=== PATIENT | female | born 1930 | race Caucasian/White ===

== ENCOUNTER 2017-06-19 12:02 | Emergency (ER) | payer OTHER ==
[2017-06-19 12:56] LABS: ADD MAN DIFF? NO
[2017-06-19 12:59] LABS: BASOPHILS % 0.4 % (0.0-2.0); EOSINOPHILS # 0.2 10^3/ul (0.0-0.5); EOSINOPHILS % 4.4 % (0.0-7.0); HEMATOCRIT 40.1 % (37.0-47.0); HEMOGLOBIN 13.6 g/dl (12.0-16.0); LYMPHOCYTES # 1.5 10^3/ul (0.8-2.9); LYMPHOCYTES % 30.4 % (15.0-51.0); MEAN CORPUSCULAR HEMOGLOBIN 31.1 pg (29.0-33.0); MEAN CORPUSCULAR HGB CONC 33.9 g/dl (32.0-37.0); MEAN CORPUSCULAR VOLUME 91.6 fl (82.0-101.0); MEAN PLATELET VOLUME 10.7 fl (7.4-10.4); MONOCYTE # 0.5 10^3/ul (0.3-0.9); MONOCYTES % 10.8 % (0.0-11.0); NEUTROPHIL # 2.7 10^3/ul (1.6-7.5); NEUTROPHILS % 53.8 % (39.0-77.0); PLATELET COUNT 169 10^3/UL (140-415); RED BLOOD COUNT 4.38 10^6/ul (4.20-5.40); RED CELL DISTRIBUTION WIDTH 13.8 % (11.5-14.5)
[2017-06-19 13:20] LABS: ALANINE AMINOTRANSFERASE 30 IU/L (13-69); ALBUMIN 4.1 g/dl (3.3-4.9); ALBUMIN/GLOBULIN RATIO 1.51; ALKALINE PHOSPHATASE 56 IU/L (42-121); ANION GAP 14 (8-16); ASPARTATE AMINO TRANSFERASE 28 IU/L (15-46); BILIRUBIN,INDIRECT 0.5 mg/dl (0-1.1); BILIRUBIN,TOTAL 0.5 mg/dl (0.2-1.3); BLOOD UREA NITROGEN 19 mg/dl (7-20); CALCIUM 9.3 mg/dl (8.4-10.2); CARBON DIOXIDE 33 mmol/L (21-31); CHLORIDE 102 mmol/L (97-110); CREATININE 0.96 mg/dl (0.44-1.00); GLUCOSE 87 mg/dl (70-220); INR 2.37; LIPASE 64 U/L (23-300); POTASSIUM 4.1 mmol/L (3.5-5.1); PROTIME 26.5 Sec (11.9-14.9); PT RATIO 2.1; SODIUM 145 mmol/L (135-144); TOTAL PROTEIN 6.8 g/dl (6.1-8.1)
[2017-06-19 13:32] LABS: TROPONIN-I < 0.012 ng/ml (0.00-0.12)
[2017-06-19] MEDS: SOD CHLORIDE 0.9% 1,000 ML IV (13:37)
[2017-06-19 13:40] LABS: ADD UMIC YES; UR ASCORBIC ACID NEGATIVE (NEGATIVE); UR BILIRUBIN (Dip) NEGATIVE (NEGATIVE); UR BLOOD (Dip) 1+ mg/dL (NEGATIVE); UR CLARITY CLEAR (CLEAR); UR COLOR STRAW (YELLOW); UR GLUCOSE (Dip) NEGATIVE (NEGATIVE); UR KETONES (Dip) NEGATIVE (NEGATIVE); UR LEUKOCYTE ESTERASE (Dip) NEGATIVE Leu/ul (NEGATIVE); UR NITRITE (Dip) NEGATIVE (NEGATIVE); UR RBC 1 /HPF (0-5); UR SPECIFIC GRAVITY (Dip) 1.008 (1.003-1.030); UR SQUAMOUS EPITHELIAL CELL FEW /HPF (FEW); UR TOTAL PROTEIN (Dip) NEGATIVE (NEGATIVE); UR UROBILINOGEN (Dip) NEGATIVE (NEGATIVE); UR WBC 1 /HPF (0-5)
== END 2017-06-19 15:17 | disposition home or self-care (01) ==
LOC: E/R 12:02
DX: R55 Syncope and collapse (principal); I10 Essential (primary) hypertension; E03.9 Hypothyroidism, unspecified; Z79.82 Long term (current) use of aspirin; Z79.01 Long term (current) use of anticoagulants
CPT/HCPCS: 36415; 71045; 80053; 81001; 83690; 84484; 85025; 85610; 99284-25

== ENCOUNTER 2017-06-27 14:22 | Emergency (ER) | payer OTHER ==
[2017-06-27] MEDS: ALBUTEROL 0.083% (NEB) 2.5 MG/3 ML AMP NEB ×2 (16:32→18:57)
[2017-06-27] MEDS: IPRATROPIUM (NEB) 0.5 MG/2.5 ML AMP NEB (16:32)
[2017-06-27] MEDS: ALBUTEROL 0.083% (NEB) 2.5 MG/3 ML AMP HHN (16:35)
[2017-06-27 17:21] LABS: ADD MAN DIFF? NO
[2017-06-27] MEDS: predniSONE 20 MG TAB PO (17:22)
[2017-06-27 17:23] LABS: BASOPHILS % 0.5 % (0.0-2.0); EOSINOPHILS # 0.1 10^3/ul (0.0-0.5); EOSINOPHILS % 2.7 % (0.0-7.0); HEMATOCRIT 38.5 % (37.0-47.0); HEMOGLOBIN 12.7 g/dl (12.0-16.0); LYMPHOCYTES # 1.1 10^3/ul (0.8-2.9); LYMPHOCYTES % 28.6 % (15.0-51.0); MEAN CORPUSCULAR HEMOGLOBIN 30.8 pg (29.0-33.0); MEAN CORPUSCULAR VOLUME 93.4 fl (82.0-101.0); MEAN PLATELET VOLUME 10.9 fl (7.4-10.4); MONOCYTE # 0.5 10^3/ul (0.3-0.9); MONOCYTES % 12.7 % (0.0-11.0); NEUTROPHILS % 55.2 % (39.0-77.0); RED BLOOD COUNT 4.12 10^6/ul (4.20-5.40); RED CELL DISTRIBUTION WIDTH 13.5 % (11.5-14.5)
[2017-06-27 17:23] LABS: WHITE BLOOD COUNT 3.7 10^3/ul (4.8-10.8)
[2017-06-27 17:38] LABS: PLATELET COUNT 123 10^3/UL (140-415); POSITIVE DIFF @See below
[2017-06-27 17:44] LABS: INR 2.03; PROTIME 23.4 Sec (11.9-14.9); PT RATIO 1.8
[2017-06-27 17:45] LABS: PARTIAL THROMBOPLASTIN TIME 41.9 Sec (25.0-35.0)
[2017-06-27 17:46] LABS: ALANINE AMINOTRANSFERASE 34 IU/L (13-69); ALBUMIN 3.7 g/dl (3.3-4.9); ALBUMIN/GLOBULIN RATIO 1.32; ALKALINE PHOSPHATASE 43 IU/L (42-121); ANION GAP 14 (8-16); ASPARTATE AMINO TRANSFERASE 34 IU/L (15-46); BILIRUBIN,INDIRECT 0.4 mg/dl (0-1.1); BILIRUBIN,TOTAL 0.4 mg/dl (0.2-1.3); BLOOD UREA NITROGEN 19 mg/dl (7-20); CALCIUM 8.4 mg/dl (8.4-10.2); CARBON DIOXIDE 32 mmol/L (21-31); CHLORIDE 95 mmol/L (97-110); GLUCOSE 100 mg/dl (70-220); POTASSIUM 4.5 mmol/L (3.5-5.1); SODIUM 136 mmol/L (135-144); TOTAL PROTEIN 6.5 g/dl (6.1-8.1)
[2017-06-27 17:58] LABS: B-TYPE NATRIURETIC PEPTIDE 5080 PG/ML (0-450)
[2017-06-27 18:02] LABS: TROPONIN-I < 0.012 ng/ml (0.00-0.12)
[2017-06-27 18:11] LABS: BAND NEUTROPHILS #M 0.1 10^3/ul (0.0-0.6); BAND NEUTROPHILS % (M) 3 % (0-4); BASOPHILS % (M) 1 % (0-2); EOSINOPHILS % (M) 4 % (0-7); LYMPHOCYTES #M 0.6 10^3/ul (0.8-2.9); LYMPHOCYTES % (M) 18 % (15-51); MONOCYTE #M 0.2 10^3/ul (0.3-0.9); MONOCYTES % (M) 6 % (0-11); PLASMAC%(M) 1 % (0); PLATELET ESTIMATE DECREASED; REACTIVE LYMPHOCYTES% (M) 1 % (0-0); SEG NEUT #M 2.4 10^3/ul (1.6-7.5); SEGMENTED NEUTROPHILS (M) % 66 % (39-77); SMUDGE%M 2 % (0-0)
[2017-06-27] MEDS: LEVOFLOXACIN 750 MG TABLET PO (18:53)
== END 2017-06-27 19:32 | disposition home or self-care (01) ==
LOC: FTE 14:22 → E/R 19:32
DX: J20.9 Acute bronchitis, unspecified (principal); I10 Essential (primary) hypertension; E03.9 Hypothyroidism, unspecified; Z79.01 Long term (current) use of anticoagulants; Z79.82 Long term (current) use of aspirin
CPT/HCPCS: 36415; 71045; 80053; 83880; 84484; 85025; 85610; 85730; 93005; 94640; 94664; 99285-25

== ENCOUNTER 2017-06-30 10:11 | Inpatient (IN) | payer OTHER ==
[2017-06-30] MEDS: ALBUTEROL 0.5% (NEB) 2.5 MG/0.5 ML AMP INH (11:17)
[2017-06-30] MEDS: FUROSEMIDE 40 MG INJ IV (11:23)
[2017-06-30 11:35] LABS: WHITE BLOOD COUNT 4.6 10^3/ul (4.8-10.8)
[2017-06-30 11:35] LABS: HEMATOCRIT 40.7 % (37.0-47.0); HEMOGLOBIN 13.4 g/dl (12.0-16.0); MEAN CORPUSCULAR HEMOGLOBIN 30.7 pg (29.0-33.0); MEAN CORPUSCULAR HGB CONC 32.9 g/dl (32.0-37.0); MEAN CORPUSCULAR VOLUME 93.3 fl (82.0-101.0); MEAN PLATELET VOLUME 11.3 fl (7.4-10.4); PLATELET COUNT 161 10^3/UL (140-415); RED BLOOD COUNT 4.36 10^6/ul (4.20-5.40); RED CELL DISTRIBUTION WIDTH 13.8 % (11.5-14.5)
[2017-06-30 11:36] LABS: POSITIVE DIFF @See below
[2017-06-30 11:37] LABS: ADD MAN DIFF? YES
[2017-06-30 11:56] LABS: ALANINE AMINOTRANSFERASE 35 IU/L (13-69); ALBUMIN 3.7 g/dl (3.3-4.9); ALBUMIN/GLOBULIN RATIO 1.32; ALKALINE PHOSPHATASE 40 IU/L (42-121); ANION GAP 16 (8-16); ASPARTATE AMINO TRANSFERASE 38 IU/L (15-46); BILIRUBIN,INDIRECT 0.1 mg/dl (0-1.1); BILIRUBIN,TOTAL 0.1 mg/dl (0.2-1.3); BLOOD UREA NITROGEN 22 mg/dl (7-20); CARBON DIOXIDE 32 mmol/L (21-31); CHLORIDE 101 mmol/L (97-110); CREATININE 1.03 mg/dl (0.44-1.00); GLUCOSE 149 mg/dl (70-220); LIPASE 115 U/L (23-300); POTASSIUM 3.8 mmol/L (3.5-5.1); SODIUM 145 mmol/L (135-144); TOTAL PROTEIN 6.5 g/dl (6.1-8.1)
[2017-06-30 12:08] LABS: B-TYPE NATRIURETIC PEPTIDE 5550 PG/ML (0-450)
[2017-06-30 12:22] LABS: TROPONIN-I < 0.012 ng/ml (0.00-0.12)
[2017-06-30 12:39] LABS: ANISOCYTOSIS 1+ (0-0); BAND NEUTROPHILS #M 0.1 10^3/ul (0.0-0.6); BAND NEUTROPHILS % (M) 4 % (0-4); LYMPHOCYTES #M 0.6 10^3/ul (0.8-2.9); LYMPHOCYTES % (M) 15 % (15-51); MICROCYTOSIS 1+ (0-0); MONOCYTE #M 0.3 10^3/ul (0.3-0.9); MONOCYTES % (M) 7 % (0-11); PLATELET ESTIMATE NORMAL; POIKILOCYTOSIS 2+ (0-0); REACTIVE LYMPHOCYTES #M 0.2 10^3/ul (0.0-0.0); REACTIVE LYMPHOCYTES% (M) 6 % (0-0); SEG NEUT #M 3.1 10^3/ul (1.6-7.5); SEGMENTED NEUTROPHILS (M) % 68 % (39-77); SMUDGE%M 11 % (0-0)
[2017-06-30] MEDS: METHYLPREDNISOLONE 125 MG INJ IV (13:54)
[2017-06-30] MEDS ORDERED: ACETAMINOPHEN 325 MG TAB PO (14:30)
[2017-06-30] MEDS ORDERED: HYDROCODONE/APAP (5/325) TAB PO (14:30)
[2017-06-30] MEDS ORDERED: ONDANSETRON 4 MG INJ IV (14:30)
[2017-06-30] MEDS ORDERED: ZOLPIDEM 5 MG TAB PO (14:30)
[2017-06-30] MEDS ORDERED: GUAIFENESIN/DM 5ML CUP PO (15:00)
[2017-06-30 15:13] LABS: CREATINE KINASE 79 IU/L (23-200)
[2017-06-30 15:24] LABS: CK INDEX 1.9; CK-MB 1.49 ng/ml (0.0-2.4)
[2017-06-30 15:30] LABS: TROPONIN-I < 0.012 ng/ml (0.00-0.12)
[2017-06-30] MEDS: [UNRECOGNIZED DRUG - MIXTURE] XX ×2 (15:30→23:30)
[2017-06-30 15:33] LABS: MAGNESIUM 2.1 mg/dl (1.7-2.5)
[2017-06-30] MEDS: DOCUSATE SODIUM 100 MG CAP PO (16:43)
[2017-06-30] MEDS: WARFARIN 2.5 MG TAB PO (17:59)
[2017-06-30] MEDS: ATORVASTATIN 10 MG TAB PO (20:21)
[2017-06-30 20:31] LABS: CREATINE KINASE 67 IU/L (23-200)
[2017-06-30 20:44] LABS: CK INDEX 2.3; CK-MB 1.52 ng/ml (0.0-2.4)
[2017-06-30 20:45] LABS: TROPONIN-I < 0.012 ng/ml (0.00-0.12)
[2017-07-01] MEDS: DOCUSATE SODIUM 100 MG CAP PO ×2 (01:50→15:04)
[2017-07-01 05:53] LABS: WHITE BLOOD COUNT 4.7 10^3/ul (4.8-10.8)
[2017-07-01 05:53] LABS: HEMATOCRIT 42.2 % (37.0-47.0); MEAN CORPUSCULAR HEMOGLOBIN 30.4 pg (29.0-33.0); MEAN CORPUSCULAR HGB CONC 33.2 g/dl (32.0-37.0); MEAN CORPUSCULAR VOLUME 91.7 fl (82.0-101.0); PLATELET COUNT 195 10^3/UL (140-415); RED CELL DISTRIBUTION WIDTH 13.4 % (11.5-14.5)
[2017-07-01 06:08] LABS: POSITIVE DIFF @See below
[2017-07-01 06:09] LABS: ADD MAN DIFF? YES
[2017-07-01 06:10] LABS: INR 2.95; PROTIME 31.6 Sec (11.9-14.9); PT RATIO 2.5
[2017-07-01 06:11] LABS: PARTIAL THROMBOPLASTIN TIME 34.8 Sec (25.0-35.0)
[2017-07-01 06:23] LABS: ANION GAP 14 (8-16); BLOOD UREA NITROGEN 31 mg/dl (7-20); CALCIUM 9.1 mg/dl (8.4-10.2); CARBON DIOXIDE 34 mmol/L (21-31); CHLORIDE 98 mmol/L (97-110); CHOL/HDL RATIO 2.7 RATIO; CHOLESTEROL 136 mg/dl (100-200); CREATININE 1.07 mg/dl (0.44-1.00); GLUCOSE 147 mg/dl (70-220); HDL CHOLESTEROL 50 mg/dl (33-92); LDL CHOLESTEROL,CALCULATED 72 mg/dl; MAGNESIUM 2.2 mg/dl (1.7-2.5); POTASSIUM 4.1 mmol/L (3.5-5.1); SODIUM 142 mmol/L (135-144); TRIGLYCERIDES 71 mg/dl (0-149)
[2017-07-01] MEDS: LEVOTHYROXINE 88 MCG TAB PO (06:36)
[2017-07-01] MEDS: [UNRECOGNIZED DRUG - MIXTURE] XX (07:30)
[2017-07-01 07:56] LABS: HEMOGLOBIN A1C 5.7 % (0-5.9)
[2017-07-01 07:59] LABS: ANISOCYTOSIS 1+ (0-0); BAND NEUTROPHILS % (M) 2 % (0-4); LYMPHOCYTES #M 0.5 10^3/ul (0.8-2.9); LYMPHOCYTES % (M) 11 % (15-51); MICROCYTOSIS 1+ (0-0); MONOCYTES % (M) 1 % (0-11); MYELOCYTES % (M) 1 % (0-0); PLATELET ESTIMATE NORMAL; POIKILOCYTOSIS 1+ (0-0); POLYCHROMASIA 1+ (0-0); REACTIVE LYMPHOCYTES #M 0.5 10^3/ul (0.0-0.0); REACTIVE LYMPHOCYTES% (M) 11 % (0-0); SEG NEUT #M 3.5 10^3/ul (1.6-7.5); SEGMENTED NEUTROPHILS (M) % 74 % (39-77); SMUDGE%M 3 % (0-0)
[2017-07-01] MEDS ORDERED: ENOXAPARIN 30 MG/0.3 ML SYG SC (09:00)
[2017-07-01] MEDS ORDERED: [UNRECOGNIZED DRUG - OTHER] PO (09:00)
[2017-07-01] MEDS ORDERED: WARFARIN 2.5 MG TAB PO (09:00)
[2017-07-01] MEDS: ASPIRIN 81 MG TAB PO (09:34)
[2017-07-01] MEDS: CHOLECALCIFEROL 2,000 UNIT CAP PO (09:34)
[2017-07-01] MEDS: MULTIVITAMINS THERAPEUTIC TAB PO (09:57)
[2017-07-01] MEDS: DONEPEZIL 5 MG TAB PO (09:57)
[2017-07-01] MEDS: SOD CHLORIDE 0.9% 100 ML (10:15)
[2017-07-01] MEDS: IOHEXOL 300MG/ML 150 ML BTL (10:15)
[2017-07-01] MEDS ORDERED: LEVALBUTEROL (NEB) 0.31 MG/3 ML AMP HHN (11:30)
[2017-07-01 11:44] LABS: THYROID STIMULATING HORMONE 0.147 MIU/L (0.465-4.680)
[2017-07-01 12:17] LABS: CREATINE KINASE 48 IU/L (23-200)
[2017-07-01 12:29] LABS: CK INDEX 2.3; TROPONIN-I < 0.012 ng/ml (0.00-0.12)
[2017-07-01] MEDS: CEFEPIME 1GM/50 ML (PMX) 50 ML IVPB (13:39)
[2017-07-01] MEDS: LEVALBUTEROL (NEB) 0.31 MG/3 ML AMP HHN ×4 (14:24→20:37)
[2017-07-01 15:44] LABS: CREATINE KINASE 48 IU/L (23-200)
[2017-07-01 15:57] LABS: CK INDEX 2.5; CK-MB 1.18 ng/ml (0.0-2.4)
[2017-07-01 15:59] LABS: TROPONIN-I < 0.012 ng/ml (0.00-0.12)
[2017-07-01] MEDS: WARFARIN 2.5 MG TAB PO (16:38)
[2017-07-01] MEDS: ATORVASTATIN 10 MG TAB PO (20:34)
[2017-07-02] MEDS: LEVALBUTEROL (NEB) 0.31 MG/3 ML AMP HHN ×6 (01:00→20:20)
[2017-07-02] MEDS: LEVOTHYROXINE 88 MCG TAB PO (06:07)
[2017-07-02] MEDS: DOCUSATE SODIUM 100 MG CAP PO ×2 (06:07→13:54)
[2017-07-02] MEDS: CHOLECALCIFEROL 2,000 UNIT CAP PO (08:54)
[2017-07-02] MEDS: DONEPEZIL 5 MG TAB PO (08:54)
[2017-07-02] MEDS: ASPIRIN 81 MG TAB PO (08:54)
[2017-07-02] MEDS: MULTIVITAMINS THERAPEUTIC TAB PO (08:54)
[2017-07-02 08:56] LABS: ADD MAN DIFF? NO
[2017-07-02 09:04] LABS: WHITE BLOOD COUNT 6.6 10^3/ul (4.8-10.8)
[2017-07-02 09:04] LABS: EOSINOPHILS % 0.2 % (0.0-7.0); HEMATOCRIT 43.2 % (37.0-47.0); HEMOGLOBIN 14.4 g/dl (12.0-16.0); LYMPHOCYTES % 30.9 % (15.0-51.0); MEAN CORPUSCULAR HEMOGLOBIN 30.8 pg (29.0-33.0); MEAN CORPUSCULAR HGB CONC 33.3 g/dl (32.0-37.0); MEAN CORPUSCULAR VOLUME 92.5 fl (82.0-101.0); MEAN PLATELET VOLUME 10.9 fl (7.4-10.4); MONOCYTE # 0.6 10^3/ul (0.3-0.9); MONOCYTES % 9.3 % (0.0-11.0); NEUTROPHIL # 3.9 10^3/ul (1.6-7.5); NEUTROPHILS % 59.3 % (39.0-77.0); PLATELET COUNT 206 10^3/UL (140-415); RED BLOOD COUNT 4.67 10^6/ul (4.20-5.40); RED CELL DISTRIBUTION WIDTH 13.7 % (11.5-14.5)
[2017-07-02 09:16] LABS: INR 3.23; PARTIAL THROMBOPLASTIN TIME 34.3 Sec (25.0-35.0); PT RATIO 2.7
[2017-07-02 09:24] LABS: ANION GAP 15 (8-16); BLOOD UREA NITROGEN 41 mg/dl (7-20); CALCIUM 8.7 mg/dl (8.4-10.2); CARBON DIOXIDE 35 mmol/L (21-31); CHLORIDE 98 mmol/L (97-110); CREATININE 1.13 mg/dl (0.44-1.00); GLUCOSE 81 mg/dl (70-220); MAGNESIUM 2.4 mg/dl (1.7-2.5); POTASSIUM 3.7 mmol/L (3.5-5.1); SODIUM 144 mmol/L (135-144)
[2017-07-02] MEDS: CEFEPIME 1GM/50 ML (PMX) 50 ML IVPB (12:31)
[2017-07-02 15:29] LABS: ADD UMIC NO; UR ASCORBIC ACID 40 mg/dL (NEGATIVE); UR BILIRUBIN (Dip) NEGATIVE (NEGATIVE); UR BLOOD (Dip) NEGATIVE (NEGATIVE); UR CLARITY SLIGHTLY CLOUDY (CLEAR); UR COLOR YELLOW (YELLOW); UR GLUCOSE (Dip) NEGATIVE (NEGATIVE); UR KETONES (Dip) NEGATIVE (NEGATIVE); UR LEUKOCYTE ESTERASE (Dip) NEGATIVE Leu/ul (NEGATIVE); UR MUCUS FEW /HPF (NONE SEEN); UR NITRITE (Dip) NEGATIVE (NEGATIVE); UR RBC 1 /HPF (0-5); UR SPECIFIC GRAVITY (Dip) 1.029 (1.003-1.030); UR TOTAL PROTEIN (Dip) NEGATIVE (NEGATIVE); UR UROBILINOGEN (Dip) NEGATIVE (NEGATIVE); UR WBC 1 /HPF (0-5)
[2017-07-02 15:48] LABS: CREATININE,URINE RANDOM 157.77 mg/dl (20-320)
[2017-07-02 16:12] LABS: SODIUM,URINE RANDOM < 13 mmol/L (30-90)
[2017-07-02] MEDS ORDERED: WARFARIN 2.5 MG TAB PO (17:00)
[2017-07-02] MEDS: ATORVASTATIN 10 MG TAB PO (20:15)
[2017-07-02] MEDS: ATENOLOL 50 MG TAB PO (20:16)
[2017-07-03] MEDS: LEVALBUTEROL (NEB) 0.31 MG/3 ML AMP HHN ×4 (00:37→13:17)
[2017-07-03] MEDS: DOCUSATE SODIUM 100 MG CAP PO (00:46)
[2017-07-03] MEDS: ATENOLOL 50 MG TAB PO (09:22)
[2017-07-03] MEDS: DONEPEZIL 5 MG TAB PO (09:22)
[2017-07-03] MEDS: MULTIVITAMINS THERAPEUTIC TAB PO (09:22)
[2017-07-03] MEDS: CHOLECALCIFEROL 2,000 UNIT CAP PO (09:22)
[2017-07-03] MEDS: ASPIRIN 81 MG TAB PO (09:22)
[2017-07-03 09:23] LABS: ADD MAN DIFF? NO
[2017-07-03 09:27] LABS: BASOPHILS % 0.1 % (0.0-2.0); EOSINOPHILS # 0.1 10^3/ul (0.0-0.5); EOSINOPHILS % 1.4 % (0.0-7.0); HEMATOCRIT 46.1 % (37.0-47.0); LYMPHOCYTES # 3.2 10^3/ul (0.8-2.9); LYMPHOCYTES % 40.3 % (15.0-51.0); MEAN CORPUSCULAR HEMOGLOBIN 30.2 pg (29.0-33.0); MEAN CORPUSCULAR HGB CONC 32.5 g/dl (32.0-37.0); MEAN CORPUSCULAR VOLUME 92.8 fl (82.0-101.0); MEAN PLATELET VOLUME 10.6 fl (7.4-10.4); MONOCYTE # 0.6 10^3/ul (0.3-0.9); MONOCYTES % 7.6 % (0.0-11.0); PLATELET COUNT 271 10^3/UL (140-415); RED BLOOD COUNT 4.97 10^6/ul (4.20-5.40); RED CELL DISTRIBUTION WIDTH 13.4 % (11.5-14.5)
[2017-07-03 09:42] LABS: ANION GAP 13 (8-16); BLOOD UREA NITROGEN 38 mg/dl (7-20); CALCIUM 8.6 mg/dl (8.4-10.2); CARBON DIOXIDE 34 mmol/L (21-31); CHLORIDE 99 mmol/L (97-110); CREATININE 1.23 mg/dl (0.44-1.00); GLUCOSE 109 mg/dl (70-220); POTASSIUM 3.5 mmol/L (3.5-5.1); SODIUM 142 mmol/L (135-144)
[2017-07-03 09:55] LABS: INR 3.14; PROTIME 33.2 Sec (11.9-14.9); PT RATIO 2.6
[2017-07-03] MEDS: CEFEPIME 1GM/50 ML (PMX) 50 ML IVPB (12:26)
[2017-07-03 12:28] LABS: FREE THYROXINE INDEX (Calc) 3.33 ug/ml (0.65-3.89); T3 UPTAKE 43.2 % (23.5-40.5); T4 (THYROXINE) 7.7 ug/dl (5.5-11.0)
[2017-07-03] MEDS: FUROSEMIDE 20 MG INJ IV (13:00)
[2017-07-03] MEDS: METHYLPREDNISOLONE 40 MG INJ IV (14:05)
[2017-07-03] MEDS ORDERED: WARFARIN 1 MG TAB PO (17:00)
[2017-07-04 15:12] LABS: CREATININE, RANDOM URINE 162 mg/dL (20-320); MICROALBUMIN 0.6 mg/dL; MICROALBUMIN/CREATININE RATIO 4 (<30)
== END 2017-07-03 14:18 | disposition home or self-care (01) | DRG 202 ==
LOC: E/R 10:11 → MS4 07-01 16:58 → MS3 12:33
DX: J20.9 Acute bronchitis, unspecified (principal); J96.00 Acute respiratory failure, unspecified whether with hypoxia or hypercapnia; I50.31 Acute diastolic (congestive) heart failure; N17.9 Acute kidney failure, unspecified; J44.0 Chronic obstructive pulmonary disease with (acute) lower respiratory infection; I13.0 Hypertensive heart and chronic kidney disease with heart failure and stage 1 through stage 4 chronic kidney disease, or unspecified chronic kidney disease; E87.3 Alkalosis; I25.5 Ischemic cardiomyopathy; J06.9 Acute upper respiratory infection, unspecified; I48.2 Chronic atrial fibrillation; N18.3 Chronic kidney disease, stage 3 (moderate); I25.10 Atherosclerotic heart disease of native coronary artery without angina pectoris; E03.9 Hypothyroidism, unspecified; E78.5 Hyperlipidemia, unspecified; M19.90 Unspecified osteoarthritis, unspecified site; R73.03 Prediabetes; Z86.73 Personal history of transient ischemic attack (TIA), and cerebral infarction without residual deficits; Z79.01 Long term (current) use of anticoagulants; Z79.82 Long term (current) use of aspirin
CPT/HCPCS: 36415; 71045; 71260; 76775; 80048; 80053; 80061; 81001; 81003; 82043; 82550; 82553; 83036; 83690; 83735; 83880; 84155; 84300; 84436; 84443; 84479; 84484; 85025; 85610; 85730; 87400; 93005; 93306; 94640; 94644; 94664; 96374; 96375; 99291-25; J1940

== ENCOUNTER 2017-08-04 07:57 | Emergency (ER) | payer OTHER ==
[2017-08-04 08:56] LABS: ADD MAN DIFF? NO
[2017-08-04 08:59] LABS: WHITE BLOOD COUNT 6.6 10^3/ul (4.8-10.8)
[2017-08-04 08:59] LABS: BASOPHILS % 0.6 % (0.0-2.0); EOSINOPHILS # 0.2 10^3/ul (0.0-0.5); EOSINOPHILS % 2.6 % (0.0-7.0); HEMATOCRIT 38.9 % (37.0-47.0); HEMOGLOBIN 12.9 g/dl (12.0-16.0); LYMPHOCYTES # 1.4 10^3/ul (0.8-2.9); LYMPHOCYTES % 20.8 % (15.0-51.0); MEAN CORPUSCULAR HEMOGLOBIN 30.9 pg (29.0-33.0); MEAN CORPUSCULAR HGB CONC 33.2 g/dl (32.0-37.0); MEAN CORPUSCULAR VOLUME 93.3 fl (82.0-101.0); MEAN PLATELET VOLUME 10.2 fl (7.4-10.4); MONOCYTE # 0.6 10^3/ul (0.3-0.9); MONOCYTES % 8.9 % (0.0-11.0); NEUTROPHIL # 4.5 10^3/ul (1.6-7.5); NEUTROPHILS % 66.9 % (39.0-77.0); PLATELET COUNT 191 10^3/UL (140-415); RED BLOOD COUNT 4.17 10^6/ul (4.20-5.40); RED CELL DISTRIBUTION WIDTH 14.4 % (11.5-14.5)
[2017-08-04 09:21] LABS: INR 2.98; PROTIME 31.9 Sec (11.9-14.9); PT RATIO 2.5
[2017-08-04 09:22] LABS: PARTIAL THROMBOPLASTIN TIME 39.1 Sec (25.0-35.0)
[2017-08-04 09:27] LABS: ANION GAP 12 (8-16); BLOOD UREA NITROGEN 16 mg/dl (7-20); CALCIUM 8.9 mg/dl (8.4-10.2); CARBON DIOXIDE 32 mmol/L (21-31); CHLORIDE 105 mmol/L (97-110); CREATININE 0.97 mg/dl (0.44-1.00); GLUCOSE 104 mg/dl (70-220); POTASSIUM 4.3 mmol/L (3.5-5.1); SODIUM 145 mmol/L (135-144)
[2017-08-04 09:50] LABS: ADD UMIC YES; UR ASCORBIC ACID NEGATIVE (NEGATIVE); UR BACTERIA FEW /HPF (NONE SEEN); UR BILIRUBIN (Dip) NEGATIVE (NEGATIVE); UR BLOOD (Dip) 3+ mg/dL (NEGATIVE); UR CLARITY CLOUDY (CLEAR); UR COLOR RED (YELLOW); UR GLUCOSE (Dip) NEGATIVE (NEGATIVE); UR KETONES (Dip) NEGATIVE (NEGATIVE); UR LEUKOCYTE ESTERASE (Dip) 1+ Leu/ul (NEGATIVE); UR NITRITE (Dip) NEGATIVE (NEGATIVE); UR RBC > 182 /HPF (0-5); UR SPECIFIC GRAVITY (Dip) 1.009 (1.003-1.030); UR TOTAL PROTEIN (Dip) 2+ mg/dl (NEGATIVE); UR UROBILINOGEN (Dip) NEGATIVE (NEGATIVE); UR WBC > 182 /HPF (0-5)
== END 2017-08-04 10:39 | disposition home or self-care (01) ==
LOC: E/R 07:57
DX: N30.00 Acute cystitis without hematuria (principal); J44.9 Chronic obstructive pulmonary disease, unspecified; E03.9 Hypothyroidism, unspecified; Z79.01 Long term (current) use of anticoagulants; Z79.82 Long term (current) use of aspirin; Z86.73 Personal history of transient ischemic attack (TIA), and cerebral infarction without residual deficits; Z96.653 Presence of artificial knee joint, bilateral
CPT/HCPCS: 80048; 81001; 85025; 85610; 85730; 87086; 99284

== ENCOUNTER 2017-08-23 09:23 | Emergency (ER) | payer OTHER ==
[2017-08-23 11:09] LABS: INR 3.35; PT RATIO 2.7
== END 2017-08-23 11:52 | disposition home or self-care (01) ==
LOC: E/R 09:23
DX: H11.32 Conjunctival hemorrhage, left eye (principal); T45.515A Adverse effect of anticoagulants, initial encounter; R40.2142 Coma scale, eyes open, spontaneous, at arrival to emergency department; R40.2252 Coma scale, best verbal response, oriented, at arrival to emergency department; R40.2362 Coma scale, best motor response, obeys commands, at arrival to emergency department; I10 Essential (primary) hypertension; F17.210 Nicotine dependence, cigarettes, uncomplicated; E03.9 Hypothyroidism, unspecified; Z96.653 Presence of artificial knee joint, bilateral; Z79.82 Long term (current) use of aspirin; Z79.01 Long term (current) use of anticoagulants
CPT/HCPCS: 85610; 99283